=== PATIENT | female | born 1955 | race Caucasian/White ===

== ENCOUNTER 2019-03-30 11:47 | Day surgery (SDC) | payer MEDICARE, BC ==
[2019-03-27 10:55] LABS: BASOPHILS # (AUTO) 0.1 X10'3 (0-0.2); EOSINOPHILS # (AUTO) 0.1 X10'3 (0-0.9); EOSINOPHILS % (AUTO) 2.3 % (0-6); LYMPHOCYTES # (AUTO) 1.6 X10'3 (1.1-4.8); LYMPHOCYTES % (AUTO) 31.7 % (21-51); MEAN CORPUSCULAR HEMOGLOBIN 30.7 PG (27.0-31.0); MEAN CORPUSCULAR HGB CONC 34.2 g/dL (33.0-36.5); MEAN CORPUSCULAR VOLUME 89.6 FL (78-98); MEAN PLATELET VOLUME 8.1 FL (7.4-10.4); MONOCYTES # (AUTO) 0.5 X10'3 (0-0.9); MONOCYTES % (AUTO) 9.6 % (2-12); NEUTROPHILS # (AUTO) 2.7 X10'3 (1.8-7.7); NEUTROPHILS % (AUTO) 54.4 % (42-75); PRE OP HEMATOCRIT 39.1 % (35.0-45.0); PRE OP HEMOGLOBIN 13.4 g/dL (12.0-16.0); PRE OP PLATELET COUNT 247 X10'3 (140-440); RED BLOOD COUNT 4.36 X10'6 (4.20-5.60); RED CELL DISTRIBUTION WIDTH 12.7 % (11.5-14.5)
[2019-03-27 10:57] LABS: PRE OP PROTIME 10.8 SECONDS (9.0-12.0)
[2019-03-27 11:08] LABS: ALBUMIN/GLOBULIN RATIO 1.2 (1.1-1.5); ALKALINE PHOSPHATASE 65 IU/L (46-116); BLOOD UREA NITROGEN 11 MG/DL (7-18); BUN/CREATININE RATIO 15.5 (6.6-38.0); CALCIUM 8.7 MG/DL (8.5-10.1); CHLORIDE 103 MMOL/L (99-107); CREATININE 0.71 MG/DL (0.40-0.90); PRE OP ALT 24 U/L (30-65); PRE OP ANION GAP 9 (8-16); PRE OP AST 16 U/L (10-37); PRE OP GLUCOSE 64 MG/DL (70-104); PRE OP POTASSIUM 4.2 MMOL/L (3.4-5.1); PRE OP SODIUM 140 MMOL/L (135-145); TOTAL CARBON DIOXIDE 28.2 MMOL/L (24-32); TOTAL PROTEIN 7.3 G/DL (6.4-8.2); eGFR 82 ML/MIN
[~2019-03-30] VITALS: Ht 165.1 cm; Wt 53.1 kg
[2019-03-30] VITALS (15 sets, daily range): BP systolic 127–167; BP diastolic 60–81
[~2019-03-30 11:47] MED LIST: ATEN25TA PO; CHOL400T14 PO; ESCI5TAB PO; ESTR0.5T PO; MEDR2.5T7 PO; ZOLP10TA5 PO; famotidine 10mg tablet PO ONE; ringers solution, lacted 1,000 ML IV SCH
[2019-03-30] MEDS ORDERED: ringers solution, lacted 1,000 ML IV SCH (13:33)
[2019-03-30] MEDS ORDERED: morphine 4 MG/ML inj SYRINge IV PRN ×2 (13:35)
[2019-03-30] MEDS ORDERED: ondansetron/PF 4mg/2ml inj IV PRN (13:35)
[2019-03-30] MEDS ORDERED: meperidine/PF 25mg/ml syringe IV PRN ×2 (13:35)
[2019-03-30] MEDS ORDERED: proCHLORperazine 10 MG/2 ml inj IV PRN (13:35)
[2019-03-30] MEDS ORDERED: LIDOcaine 1% W/epiNEPHrine 1:100,000 20ml vial ONE (14:43)
[2019-03-30] MEDS ORDERED: mupirocin 2% ointment 22GM ONE (14:43)
[2019-03-30] MEDS ORDERED: BUPIVAcaine 0.5% W/EPI /PF 30ml vial ONE (14:44)
[2019-03-30] MEDS ORDERED: oxymetazoline 15 ML nasal spray NS ONE ×2 (14:44→20:00)
[2019-03-30] MEDS ORDERED: cefTAZidime 1gm inj ONE (14:44)
[2019-03-30] MEDS ORDERED: cocaine 4% topical solution 4ml bottle ONE (14:59)
[2019-03-30] MEDS ORDERED: methylPREDNISolone acetate 80mg/ml inj**IM only ONE (15:00)
[2019-03-30] MEDS ORDERED: sevoflurane 250ml liquid IH ONE (15:10)
[2019-03-30] MEDS ORDERED: midazolam 2 mg/2 ml injection ONE (15:14)
[2019-03-30] MEDS ORDERED: fentaNYL/PF 50MCG/1 ML 2ML syringe ONE ×2 (15:14→16:56)
[2019-03-30] MEDS ORDERED: LIDOcaine 2% (20mg/ml) 5ml vial ONE (16:42)
[2019-03-30] MEDS ORDERED: propofol inj 20 ML IV ONE (16:42)
[2019-03-30] MEDS ORDERED: ondansetron/PF 4mg/2ml inj ONE (16:42)
[2019-03-30] MEDS ORDERED: dexamethasone sod phosphate 4mg/ml inj. ONE (16:42)
--- NOTE | 2019-03-30 16:57 | NUR ---
Received from OR via [facility], accompanied by Anesthesiologist DR ALMARAZ and report given by Anesthesiologist. PT DROWSY, DENIES PAIN, BILAT NARES W/COTTONOIDS AND NOSE W/SPLINT ON AND INTACT. Addendum: 03/30/19 at 1927 by Beatrice Hough RN Amended: Links added.
[2019-03-30] MEDS: meperidine/PF 25mg/ml syringe IV PRN ×3 (17:27→18:04)
[2019-03-30] MEDS ORDERED: salt irrigation nasal spray 45 ML SPRAY NS PRN (19:05)
--- NOTE | 2019-03-30 19:07 | NUR ---
D/C INSTRUCTIONS GONE OVER AND GIVEN TO PT AND PTS WHO VERBALIZED UNDERSTANDING. PT D/C TO HOME VIA W/C TO PRIVATE VEHICLE W/O INCIDENT. Addendum: 03/30/19 at 1935 by Beatrice Hough RN Amended: Links added.
== END 2019-03-30 19:37 | disposition home or self-care (01) ==
LOC: PAS 11:47
PROVIDERS: ATTEND Otolaryngology
DX: J34.2 Deviated nasal septum (principal); J32.0 Chronic maxillary sinusitis; J34.89 Other specified disorders of nose and nasal sinuses; I10 Essential (primary) hypertension; F32.9 Major depressive disorder, single episode, unspecified; G47.00 Insomnia, unspecified; Z98.890 Other specified postprocedural states; Z72.89 Other problems related to lifestyle; Z88.8 Allergy status to other drugs, medicaments and biological substances; Z88.5 Allergy status to narcotic agent; Z79.899 Other long term (current) drug therapy; Z79.01 Long term (current) use of anticoagulants
CPT/HCPCS: 30465; 30520; 31267; 36415; 61782; 80053; 82948; 85025; 85576; 85610; 85730; 87070; 87075; 87102; 93005; A6402; C9250; J0713; J1040; J1100; J2001; J2175; J2250; J2405; J2704; J3010; J7040; J7120; 87077; 87186; A4618; A6250; A7000